=== PATIENT | male | born 1995 | race Caucasian/White ===

== ENCOUNTER 2017-05-31 23:45 | Emergency (ER) | payer OTHER ==
[~2017-05-31] VITALS: Ht 185.4 cm; Wt 83.8 kg
[~2017-05-31 23:45] MED LIST: NAPROXEN500 MG PO
[2017-06-01 01:10] LABS: HEMATOCRIT 43.2 % (38.0-50.0); MCH 31.1 PG (29.0-34.0); MCHC 35.6 G/DL (30.0-36.0); MCV 87.3 FL (86-99); MEAN PLAT.VOLUME 10.1 uM^3 (9.0-12.4); PLATELET COUNT 204 K/uL (156-360); RBC DIS.WIDTH-CV 11.4 % (11.8-14.6); RBC DIS.WIDTH-SD 36.2 % (39-53); RED BLOOD COUNT 4.95 M/uL (4.00-5.50); WHITE BLOOD COUNT 9.7 K/uL (4.1-10.2)
[2017-06-01 01:21] LABS: CHLORIDE 105 mEq/L (99-109); D-DIMER ELISA < 150.00 ng/mLDDU (<230); POTASSIUM 3.4 mEq/L (3.7-5.4); SODIUM 138 mEq/L (136-147)
[2017-06-01 01:23] LABS: GLUCOSE 101 mg/dL (70-99)
[2017-06-01 01:24] LABS: ANION GAP 9 MEQ/L (2-14)
[2017-06-01 01:27] LABS: GFR ESTIMATE (CALCULATED) > 59 mL/min/ (58.99-99999)
[2017-06-01 01:28] LABS: UREA NITROGEN (BUN) 13 mg/dL (9-23)
[2017-06-01 02:46] VITALS: BP 118/53
== END 2017-06-01 02:47 | disposition home or self-care (01) ==
LOC: EME 23:45
PROVIDERS: Physician Assistant
DX: B34.9 Viral infection, unspecified (principal); Z87.891 Personal history of nicotine dependence
CPT/HCPCS: 71020; 80048; 85027; 85379; 93005; 99281; 99285; J1885; J7030